=== PATIENT | female | born 1960 | race American Indian/Alaskan Native ===

== ENCOUNTER 2018-10-28 09:48 | Observation (INO) | payer BC ==
[2018-10-28] MEDS ORDERED: NITROSTAT SL ONE (10:46)
[2018-10-28] MEDS ORDERED: NACL 0.9% 1000 ML 1,000 ML IV ONE (10:46)
[2018-10-28] MEDS ORDERED: BABY ASPIRIN PO ONE (10:47)
--- NOTE | 2018-10-28 10:49 | Emergency Department Report ---
ED Chest Pain HPI - General Chief Complaint: Chest Pain Stated Complaint: CHEST PAIN Time Seen by Provider: 10/28/18 10:34 Source: patient Mode of arrival: Ambulatory Limitations: No Limitations - History of Present Illness Initial Comments: 57-year-old after [place] female presents to the emergency department from home with complaint of chest pain and some other associated symptoms that were going on since about 3 AM last night. The chest pain is midsternal to left-sided. It is associated with some shortness of breath, left neck pain and left arm pain. There are no known aggravating or alleviating factors. She took 162 mg of aspirin last night when the pain began without any relief. The pain has been consistent since it began. No recent travel or sick contacts at home. She has a past medical history of a previous heart murmur. She denies any family history of early cardiac disease or events. She denies any tobacco or illicit drug use or abuse. The patient says that she had a stress test about 2 years ago secondary to some intermittent chest pains she was having at that time. Severity scale (0 -10): 7 - Related Data Home Medications Medication Instructions Recorded Confirmed Last Taken No Known Home Medications [No 10/28/18 10/28/18 Unknown Reported Home Medications] Allergies Allergy/AdvReac Type Severity Reaction Status Date / Time codeine Allergy Shortness Verified 10/28/18 09:51 of Breath Heart Score - HEART Score History: Moderately suspicious EKG: Normal Age: 45-65 Risk factors: 1-2 risk factors Troponin: < normal limit HEART Score: 3 - Critical Actions Critical Actions: 0-3 pts:0.9-1.7%risk of adverse cardiac event.Candidate for discharge ED Review of Systems ROS: Stated complaint: CHEST PAIN Other details as noted in HPI Comment: All other systems reviewed and negative Constitutional: denies: chills, fever Eyes: denies: eye pain, vision change ENT: denies: ear pain, throat pain Respiratory: shortness of breath. denies: cough Cardiovascular: chest pain. denies: palpitations Gastrointestinal: nausea. denies: abdominal pain, vomiting Genitourinary: denies: dysuria, discharge Musculoskeletal: denies: back pain, arthralgia Skin: denies: rash, lesions Neurological: denies: headache, weakness ED Past Medical Hx - Past Medical History Previous Medical History?: Yes Additional medical history: heart murmur - Surgical History Past Surgical History?: Yes Additional Surgical History: tubal ligation. breast surgery x4 - Social History Smoking Status: Never Smoker Substance Use Type: Alcohol - Medications Home Medications: Home Medications Medication Instructions Recorded Confirmed Last Taken Type No Known Home Medications [No 10/28/18 10/28/18 Unknown History Reported Home Medications] ED Physical Exam - General Limitations: No Limitations - Other Other exam information: GENERAL: The patient is well-developed well-nourished. HEENT: Normocephalic. Atraumatic. Patient has moist mucous membranes. EYES: Extraocular motions are intact. Pupils are equal and reactive to light bilaterally. NECK: Supple. Trachea is midline. CHEST/LUNGS: Clear to auscultation. There is no respiratory distress noted. HEART/CARDIOVASCULAR: Regular. There is no tachycardia. There is no obvious murmur. ABDOMEN: Abdomen is soft, nontender. Patient has normal bowel sounds. There is no abdominal distention. SKIN: Skin is warm and dry. NEURO: The patient is awake, alert, and oriented. The patient is cooperative. The patient has no focal neurologic deficits. The patient has normal speech. MUSCULOSKELETAL: There is no tenderness or deformity. There is no limitation range of motion. There is no evidence of acute injury. ED Course Vital Signs 10/28/18 10/28/18 10/28/18 09:52 10:02 11:10 Temperature 99.1 F 99.1 F Pulse Rate 90 87 92 H Respiratory 20 20 16 Rate Blood Pressure 113/54 Blood Pressure 113/54 101/69 [Left] O2 Sat by Pulse 100 100 99 Oximetry 10/28/18 10/28/18 10/28/18 11:20 11:28 11:30 Temperature Pulse Rate 106 H 93 H Respiratory 16 26 H Rate Blood Pressure 101/69 114/68 Blood Pressure 106/48 [Left] O2 Sat by Pulse 100 99 Oximetry 10/28/18 10/28/18 10/28/18 12:00 12:30 13:00 Temperature Pulse Rate 90 100 H 99 H Respiratory 22 Rate Blood Pressure 113/60 108/68 114/67 Blood Pressure [Left] O2 Sat by Pulse 98 99 98 Oximetry 10/28/18 10/28/18 10/28/18 13:30 14:00 14:30 Temperature Pulse Rate 105 H 106 H 106 H Respiratory 22 Rate Blood Pressure 114/70 115/72 112/68 Blood Pressure [Left] O2 Sat by Pulse 98 97 98 Oximetry 10/28/18 10/28/18 10/28/18 15:00 15:30 16:00 Temperature 98.5 F Pulse Rate 110 H 107 H Respiratory 21 20 Rate Blood Pressure 131/65 108/64 Blood Pressure [Left] O2 Sat by Pulse 97 97 Oximetry SALVADOR score - Salvador Score Age > 65: (0) No Aspirin use within the Past 7 Days: (0) No 3 or more CAD Risk Factors: (0) No 2 or more Angina events in past 24 hrs: (1) Yes Known CAD with more than 50% Stenosis: (0) No Elevated Cardiac Markers: (0) No ST Deviation Greater than 0.5mm: (0) No SALVADOR Score: 1 ED Medical Decision Making - Lab Data Result diagrams: 10/28/18 10:40 10/28/18 11:33 - EKG Data -: EKG Interpreted by Me EKG shows normal: sinus rhythm, axis, intervals, QRS complexes, ST-T waves Rate: normal - EKG Data When compared to previous EKG there are: previous EKG unavailable Interpretation: normal EKG - Radiology Data Radiology results: image reviewed interpreted by me: Chest x-ray does not show any pneumothorax, pleural effusion, pneumonia or obvious focal consolidation. - Medical Decision Making Patient presents with some left-sided chest pain that started about 3 AM last night. EKG does not show any signs of ST elevation OK. Labs unremarkable thus far including negative troponins 2 and a negative/low d-dimer. Vital signs stable throughout her ED course. However the patient continues to have some chest discomfort and has never had a full cardiac workup including a stress test. For these reasons the patient will be admitted to the hospital for further evaluation and treatment and was accepted for admission by the hospitalist, Dr. Nelson. - Differential Diagnosis OK, PE, Costochondritis, GERD Critical Care Time: No Critical care attestation.: If time is entered above; I have spent that time in minutes in the direct care of this critically ill patient, excluding procedure time. ED Disposition Clinical Impression: Acute chest pain, Ruled out for myocardial infarction Disposition: OP ADMIT IP TO THIS HOSP Is pt being admited?: Yes Does the pt Need Aspirin: No Condition: Stable Time of Disposition: 12:16
[2018-10-28 11:17] LABS: Basophils % (Auto) 0.3 % (0.0-1.8); Eosinophils % (Auto) 0.3 % (0.0-4.3); Hematocrit 37.6 % (30.3-42.9); Hemoglobin 12.6 gm/dl (10.1-14.3); Lymphocytes # (Auto) 0.8 K/mm3 (1.2-5.4); Lymphocytes % (Auto) 6.1 % (13.4-35.0); Mean Corpuscular HGB Conc 33 % (30-34); Mean Corpuscular Hemoglobin 29 pg (28-32); Mean Corpuscular Volume 87 fl (79-97); Monocytes # (Auto) 0.7 K/mm3 (0.0-0.8); Monocytes % (Auto) 5.4 % (0.0-7.3); Platelet Count 346 K/mm3 (140-440); Red Blood Count 4.31 M/mm3 (3.65-5.03); Red Cell Distribution Width 13.9 % (13.2-15.2)
[2018-10-28 11:28] LABS: INR 0.87 (0.87-1.13); Partial Thromboplastin Time 24.6 Sec. (24.2-36.6)
[2018-10-28 12:09] LABS: Alanine Aminotransferase 29 units/L (7-56); Albumin 3.9 g/dL (3.9-5); BUN/Creatinine Ratio 13; Blood Urea Nitrogen 10 mg/dL (7-17); Calcium 8.8 mg/dL (8.4-10.2); Hemolysis Index 24
--- NOTE | 2018-10-28 13:32 | XRay Report ---
AP CHEST: HISTORY: chest pain AP view of the chest demonstrates a normal mediastinal and cardiac contour with clear lungs and normal bony and soft tissue structures. IMPRESSION: Unremarkable AP chest.
--- NOTE | 2018-10-28 23:40 | History and Physical Report ---
History of Present Illness Date of examination: 10/28/18 Date of admission: 10/28/18 12:16 Chief complaint: Chest pains since 3 AM History of present illness: 57-year-old -German female with no significant past medical history presents with left-sided chest pain since 3 AM in the morning. Chest pain is midsternal and radiated to the neck. Some shortness of her present. No diaphoresis. Pain is about 6 on scale of 1-10. No palpitations. No exacerbati ng or relieving factors. Pain is dull to sharp sometimes. No significant past medical history. No recent travel. Past Medical History Previous Medical History?: Yes Additional medical history: heart murmur Surgical History Past Surgical History?: Yes Additional Surgical History: tubal ligation. breast surgery x4. Cyst removal Social History Smoking Status: Never Smoker Substance Use Type: Alcohol Family history Htn Medications Home Medications: Home Medications Medication Instructions Recorded Confirmed Last Taken Type No Known Home Medications [No 10/28/18 10/28/18 Unknown History Reported Home Medications] Review of Systems ROS: Stated complaint: CHEST PAIN Other details as noted in HPI Comment: All other systems reviewed and negative Constitutional: denies: chills, fever Eyes: denies: eye pain, vision change ENT: denies: ear pain, throat pain Respiratory: shortness of breath. denies: cough Cardiovascular: chest pain. denies: palpitations Gastrointestinal: nausea. denies: abdominal pain, vomiting Genitourinary: denies: dysuria, discharge Musculoskeletal: denies: back pain, arthralgia Skin: denies: rash, lesions Neurological: denies: headache, weakness 14 point review of systems done Medications and Allergies Allergies Allergy/AdvReac Type Severity Reaction Status Date / Time codeine Allergy Shortness Verified 10/28/18 09:51 of Breath Home Medications Medication Instructions Recorded Confirmed Last Taken Type No Known Home Medications [No 10/28/18 10/28/18 Unknown History Reported Home Medications] Exam - Constitutional Vitals: Temp Pulse Resp BP Pulse Ox 98.5 F 96 H 18 97/49 95 10/28/18 16:00 10/28/18 20:59 10/28/18 20:59 10/28/18 19:54 10/28/18 20:59 General appearance: Present: no acute distress, well-nourished - EENT Eyes: Present: PERRL ENT: hearing intact, clear oral mucosa - Neck Neck: Present: supple, normal ROM - Respiratory Respiratory effort: normal Respiratory: bilateral: CTA - Cardiovascular Heart rate: 78 Rhythm: regular Heart Sounds: Present: S1 & S2. Absent: rub, click - Extremities Extremities: no ischemia, pulses symmetrical, No edema Peripheral Pulses: within normal limits - Abdominal General gastrointestinal: Present: soft, non-tender, non-distended, normal bowel sounds Female genitourinary: Present: normal - Integumentary Integumentary: Present: clear, warm, dry - Musculoskeletal Musculoskeletal: gait normal, strength equal bilaterally - Psychiatric Psychiatric: appropriate mood/affect, intact judgment & insight - Neurologic Neurologic: CNII-XII intact, moves all extremities - Allied Health Allied health notes reviewed: nursing, case management Results - Labs CBC & Chem 7: 10/28/18 10:40 10/28/18 11:33 Labs: Laboratory Last Values WBC 12.9 K/mm3 (4.5-11.0) H 10/28/18 10:40 RBC 4.31 M/mm3 (3.65-5.03) 10/28/18 10:40 Hgb 12.6 gm/dl (10.1-14.3) 10/28/18 10:40 Hct 37.6 % (30.3-42.9) 10/28/18 10:40 MCV 87 fl (79-97) 10/28/18 10:40 MCH 29 pg (28-32) 10/28/18 10:40 MCHC 33 % (30-34) 10/28/18 10:40 RDW 13.9 % (13.2-15.2) 10/28/18 10:40 Plt Count 346 K/mm3 (140-440) 10/28/18 10:40 Lymph % (Auto) 6.1 % (13.4-35.0) L 10/28/18 10:40 [place] % (Auto) 5.4 % (0.0-7.3) 10/28/18 10:40 Eos % (Auto) 0.3 % (0.0-4.3) 10/28/18 10:40 Baso % (Auto) 0.3 % (0.0-1.8) 10/28/18 10:40 Lymph # 0.8 K/mm3 (1.2-5.4) L 10/28/18 10:40 [place] # 0.7 K/mm3 (0.0-0.8) 10/28/18 10:40 Eos # 0.0 K/mm3 (0.0-0.4) 10/28/18 10:40 Baso # 0.0 K/mm3 (0.0-0.1) 10/28/18 10:40 Seg Neutrophils % 87.9 % (40.0-70.0) H 10/28/18 10:40 Seg Neutrophils # 11.3 K/mm3 (1.8-7.7) H 10/28/18 10:40 PT 12.3 Sec. (12.2-14.9) 10/28/18 10:40 INR 0.87 (0.87-1.13) 10/28/18 10:40 APTT 24.6 Sec. (24.2-36.6) 10/28/18 10:40 D-Dimer 240.77 ng/mlDDU (0-234) H 10/28/18 10:40 Sodium 141 mmol/L (137-145) 10/28/18 11:33 Potassium 4.4 mmol/L (3.6-5.0) 10/28/18 11:33 Chloride 104.9 mmol/L (98-107) 10/28/18 11:33 Carbon Dioxide 22 mmol/L (22-30) 10/28/18 11:33 Anion Gap 19 mmol/L 10/28/18 11:33 BUN 10 mg/dL (7-17) 10/28/18 11:33 Creatinine 0.8 mg/dL (0.7-1.2) 10/28/18 11:33 Estimated GFR > 60 ml/min 10/28/18 11:33 BUN/Creatinine Ratio 13 % 10/28/18 11:33 Glucose 78 mg/dL (65-100) 10/28/18 11:33 Calcium 8.8 mg/dL (8.4-10.2) 10/28/18 11:33 Total Bilirubin 0.70 mg/dL (0.1-1.2) 10/28/18 11:33 AST 30 units/L (5-40) 10/28/18 11:33 ALT 29 units/L (7-56) 10/28/18 11:33 Alkaline Phosphatase 39 units/L (35-129) 10/28/18 11:33 Troponin T < 0.010 ng/mL (0.00-0.029) 10/28/18 15:25 Total Protein 6.8 g/dL (6.3-8.2) 10/28/18 11:33 Albumin 3.9 g/dL (3.9-5) 10/28/18 11:33 Albumin/Globulin Ratio 1.3 % 10/28/18 11:33 Short CBC 10/28/18 Range/Units 10:40 WBC 12.9 H (4.5-11.0) K/mm3 Hgb 12.6 (10.1-14.3) gm/dl Hct 37.6 (30.3-42.9) % Plt Count 346 (140-440) K/mm3 BMP 10/28/18 11:33 Sodium 141 Potassium 4.4 Chloride 104.9 Carbon Dioxide 22 BUN 10 Creatinine 0.8 Glucose 78 Calcium 8.8 Cardiac Enzymes 10/28/18 10/28/18 Range/Units 11:33 15:25 Troponin T < 0.010 < 0.010 (0.00-0.029) ng/mL Liver Function 10/28/18 Range/Units 11:33 Total Bilirubin 0.70 (0.1-1.2) mg/dL AST 30 (5-40) units/L ALT 29 (7-56) units/L Alkaline Phosphatase 39 (35-129) units/L Albumin 3.9 (3.9-5) g/dL - Imaging and Cardiology EKG: report reviewed (normal sinus rhythm heart rate of 74, minute no acute ST-T wave changes) Chest x-ray: report reviewed (no acute findings) Assessment and Plan Advance Directives: Yes (full code) VTE prophylaxis?: Chemical Plan of care discussed with patient/family: Yes - Patient Problems (1) Acute chest pain Current Visit: Yes Status: Acute Plan to address problem: Chest pain rule out [place] Chest pain protocol Lexiscan in the morning Serial troponins Costochondritis and GERD in the differential diagnosis (2) DVT prophylaxis Current Visit: Yes Status: Acute Plan to address problem: Patient initiated on Lovenox and GI prophylaxis
[2018-10-28] MEDS ORDERED: DILAUDID IV PRN (23:47)
[2018-10-28] MEDS ORDERED: SODIUM CHLORIDE FLUSH SYRINGE 10 ML IV PRN (23:47)
[2018-10-28] MEDS ORDERED: TYLENOL PO PRN (23:47)
[2018-10-28] MEDS ORDERED: ZOFRAN IV PRN (23:47)
[2018-10-28] MEDS ORDERED: PERCOCET 5/325 PO PRN (23:47)
[2018-10-29 06:39] LABS: Alanine Aminotransferase 17 units/L (7-56); Albumin 3.7 g/dL (3.9-5); BUN/Creatinine Ratio 11; Blood Urea Nitrogen 9 mg/dL (7-17); Calcium 8.8 mg/dL (8.4-10.2); Hemolysis Index 2
[2018-10-29] MEDS ORDERED: PEPCID PO SCH (10:00)
[2018-10-29] MEDS ORDERED: SODIUM CHLORIDE FLUSH SYRINGE 10 ML IV SCH (10:00)
[2018-10-29] MEDS ORDERED: LEXISCAN IV ONE ×2 (10:18→10:19)
--- NOTE | 2018-10-29 10:52 | Discharge Summary ---
Providers - Providers Date of Admission: 10/28/18 12:16 Attending physician: AMINATA AVILA MD Primary care physician: [facility] MD [facility] Hospitalization Reason for admission: Chest pain Condition: Stable Pertinent studies: Cardiac stress test was negative for acute ischemia Hospital course: 57-year-old -[place] female with no significant past medical history presents with left-sided chest pain since 3 AM in the morning. Chest pain is midsternal and radiated to the neck. Some shortness of her present. No diaphoresis. Pain is about 6 on scale of 1-10. No palpitations. No exacerbating or relieving factors. Pain is dull to sharp sometimes. No significant past medical history. No recent travel. Patient was admitted to the floor, cardiac enzymes were negative, EKG no ST elevation, stress test was done negative for acute ischemia. Patient's chest pain subsided and discharged home in a stable condition. Patient was evaluated face to face before discharge. Disposition: DC-01 TO HOME OR SELFCARE Time spent for discharge: 32 minutes - Discharge Diagnoses (1) Acute chest pain Status: Acute (2) Costochondritis Status: Acute Core Measure Documentation - Palliative Care Palliative Care/ Comfort Measures: Not Applicable - Core Measures Any of the following diagnoses?: none Exam - Physical Exam Narrative exam: Not in cardiopulmonary distress. The patient appeared well nourished and normally developed. Vital signs as documented. Head exam is unremarkable. No scleral icterus . Neck is without jugular venous distension, thyromegaly, or carotid bruits. Lungs are clear to auscultation. Cardiac exam reveals regular rate and Rhythm. First and second heart sounds normal. No murmurs, rubs or gallops. Abdominal exam reveals normal bowel sounds, no masses, no organomegaly and no aortic enlargement. Extremities are nonedematous and both femoral and pedal pulses are normal. OUTER DIAMETER GRINDER TOOL: Alert and oriented 3. No focal weakness. - Constitutional Vitals: Temp Pulse Resp BP Pulse Ox 99.6 F 90 18 101/63 96 10/29/18 08:00 10/29/18 09:44 10/29/18 08:00 10/29/18 08:00 10/29/18 08:00 Plan Activity: no restrictions Weight Bearing Status: Full Weight Bearing Diet: regular Follow up with: NELLA LAZO MD [Primary Care Provider] - 3-5 Days Forms: Discharge Signature Page
--- NOTE | 2018-10-29 13:47 | Treadmill Report ---
PROCEDURE: Nuclear stress test. REFERRING PHYSICIAN: Tara Nelson MD PROTOCOL: The patient was brought to the stress lab in postoperative state, given 10 mCi of technetium 99m at rest. The patient underwent rest imaging. The patient when treadmill stress test. At peak stress, the patient was given 26 mCi of technetium 99m. Shortly thereafter, the patient underwent stress imaging. Raw imaging reveals mild GI artifact, no significant motion artifact. SPECT image examined carefully in horizontal long axis, vertical long axis, short axis views. There is normal homogenous uptake of radioisotope in all reported segments. No evidence of a significant fixed or reversible perfusion defects suggestive of prior infarction or ischemia. Gated wall motion reveals normal systolic thickening, calculated ejection fraction 73%, no TID. CONCLUSIONS: 1. Normal myocardial perfusion scan without evidence of active ischemia or prior infarction. 2. Normal left ventricular systolic performance without evidence of transient ischemic dilatation or stress-induced segmental wall motion abnormalities. JOB# [id number] BRANT/CATALINO
[2018-10-29 16:56] VITALS: BP 109/68
== END 2018-10-29 17:59 | disposition home or self-care (01) ==
LOC: ED 09:48 → 4A 12:16
PROVIDERS: ADMIT Internal Medicine; ATTEND Internal Medicine
DX: M94.0 Chondrocostal junction syndrome [Tietze] (principal); Z98.51 Tubal ligation status; Z98.890 Other specified postprocedural states; Z88.8 Allergy status to other drugs, medicaments and biological substances
CPT/HCPCS: 36415; 71045; 78452; 80053; 83036; 84484; 85025; 85379; 85610; 85730; 93005; 93010; 93017; 99284; A9502; G0378; J2785; J7030